=== PATIENT | female | born 1960 | race African-American/Black ===

== ENCOUNTER 2018-10-19 10:08 | Day surgery (SDC) | payer OTHER ==
[~2018-10-19 10:08] MED LIST: NACL 0.9% 1000 ML 1,000 ML IV SCH
--- NOTE | 2018-10-19 11:31 | Anesthesia Consultation ---
Anesthesia Consult and Med Hx Date of service: 10/19/18 - Airway Anesthetic Teeth Evaluation: Good ROM Head & Neck: Adequate Mallampati Class: Class III Intubation Access Assessment: Possibly Difficult - Pre-Operative Health Status ASA Pre-Surgery Classification: ASA2 Proposed Anesthetic Plan: MAC - Pulmonary Hx Sleep Apnea: Yes (undiagnosed) - Gastrointestinal Hx Gastroesophageal Reflux Disease: Yes (bloating)
--- NOTE | 2018-10-19 11:31 | Anesthesia Day of Surgery ---
Anesthesia Day of Surgery - Day of Surgery Patient Examined: Yes Patient H&P Reviewed: Yes Patient is NPO: Yes
[2018-10-19] MEDS ORDERED: DIPRIVAN 10 MG/ML IV ONE ×2 (11:34)
--- NOTE | 2018-10-19 12:09 | Short Stay Summary ---
Short Stay Documentation Date of service: 10/19/18 Narrative H&P: Pt presents for EGD 2/2 dyspepsia and screening colonoscopy. Abdominal discomfort/primarily epigastric and reflux. Weight stable. Denies gi bleeding. no prior screening colonoscopy. rest per clinic note/no changes. - History H&P: obtained from office Past Medical History: other (hepatitis B) Past Surgical History: Other Social history: no significant social history - Allergies and Medications Current Medications: Allergies No Known Allergies Allergy (Verified 10/17/18 15:04) Home Medications Medication Instructions Recorded Confirmed Last Taken Type No Known Home Medications [No 10/19/18 10/19/18 Unknown History Reported Home Medications] Active Medications Sodium Chloride (Nacl 0.9% 1000 Ml) 1,000 mls @ 50 mls/hr IV DIRECT HANNAH Last Admin: 10/19/18 11:43 Dose: 50 mls/hr Documented by: - Physical exam General appearance: no acute distress Lungs: Clear to auscultation Heart: Regular rate, Normal S1, Normal S2 Gastrointestinal: normal Extremities: No edema - Brief post op/procedure progress note Date of procedure: 10/19/18 Pre-op diagnosis: Dyspepsia, screening colonoscopy Post-op diagnosis: same Procedure: EGD with biopsies Colonoscopy with snare polypectomy Anesthesia: MAC Findings: EGD: erythematous mucosa in gastric body. biopsied erosive duodenitis. Biopsied Colonoscopy: fair prep; ~4 mm sessile polyp removed with cold snare Surgeon: SHERRIE ESTRADA Estimated blood loss: minimal Pathology: list (Jar A - duodenal biopsies; Jar B - gastric biopsies; Jar C - colon polyp) - Disposition Condition at discharge: Good Disposition: DC-01 TO HOME OR SELFCARE Short Stay Discharge Plan Follow up with: IVÁN MCCLAIN MD [Primary Care Provider] - 7 Days
--- NOTE | 2018-10-19 12:12 | Operative Report ---
Operative Report Operative Report: Esophagogastroduodenoscopy Procedure Note with Biopsies Date of procedure: 10/19/2018 Endoscopist: Eugene Alvarado Pre-op diagnosis/indication: Dyspepsia, abdominal pain, GERD Post-op diagnosis: Gastritis, Erosive duodenitis MEDICATIONS: MAC COMPLICATIONS: No immediate complications ESTIMATED BLOOD LOSS: Minimal DESCRIPTION OF PROCEDURE: After consent was obtained, the patient was placed in the left lateral decubitis position. The olympus endoscope was inserted into the patient's mouth under direct vision and advanced to the 2nd portion of the duodenum without difficulty. The patient tolerated the procedure well. The views of the mucosa were good. The patient's vital signs were monitored continuously throughout the procedure. FINDINGS: The esophagus appeared normal. There was mild to moderate erythematous mucosa in the antrum of the stomach. Biopsied were obtained. Otherwise, the stomach appeared normal. There were multiple superficial erosions throughout the duodenal sweep and 2nd portion of the duodenum. Biopsies were obtained. Otherwise, the duodenum appeared normal. IMPRESSION: 1. Gastritis. Biopsied. 2. Erosive duodenitis. Biopsied. RECOMMENDATIONS: -follow-up pathology -cont anti-acid medication daily -avoid nsaid medications -return to GI clinic in 3-4 weeks
--- NOTE | 2018-10-19 12:14 | Operative Report ---
Operative Report Operative Report: Colonoscopy Procedure Note with Snare polypectomy Date of procedure: 10/19/2018 Endoscopist: Eugene Alvarado Pre-op diagnosis/indication: Screening for colorectal cancer Post-op diagnosis: Colon polyp MEDICATIONS: MAC COMPLICATIONS: No immediate complications ESTIMATED BLOOD LOSS: Minimal DESCRIPTION OF PROCEDURE: After consent was obtained, the patient was placed in the left lateral decubitis position. The olympus colonoscope was inserted into the rectum under direct vision, and advanced to the cecum without difficulty. The quality of prep was fair. The views of the mucosa were fair. The patient tolerated the procedure well. The patient's vital signs were monitored continuously throughout the procedure. FINDINGS: There was an ~4 mm sessile polyp in the descending colon. The polyp was removed with cold snare and retrieved. Internal hemorrhoids were visualized on retro-flexion view. IMPRESSION: 1. Fair prep 2. Colon polyp removed with snare polypectomy as above RECOMMENDATIONS: -follow-up pathology -repeat colonoscopy in 3 years for surveillance (due to polyp and fair prep) -follow-up in GI clinic per EGD report recommendations
[2018-10-19 12:34] VITALS: BP 112/61
[2018-10-19] MEDS ORDERED: NACL 0.9% 1000 ML 1,000 ML ONE (13:20)
== END 2018-10-19 12:46 | disposition home or self-care (01) ==
LOC: GIO 10:08
PROVIDERS: ATTEND Internal Medicine Gastroenterology
DX: Z12.11 Encounter for screening for malignant neoplasm of colon (principal); D12.4 Benign neoplasm of descending colon; K29.50 Unspecified chronic gastritis without bleeding; K21.9 Gastro-esophageal reflux disease without esophagitis; K29.80 Duodenitis without bleeding; G47.30 Sleep apnea, unspecified; Z79.899 Other long term (current) drug therapy
CPT/HCPCS: 43239; 45385; 88305; 88342; J2704; J7030

== ENCOUNTER 2018-12-27 09:27 | Outpatient (CLI) | payer OTHER ==
--- NOTE | 2018-12-27 11:47 | Ultrasound Report ---
ABDOMINAL ULTRASOUND LIMITED (RIGHT UPPER QUADRANT) HISTORY: Abdominal pain history of hepatitis B. COMPARISON: None. No relevant comparative imaging. TECHNIQUE: Multiple real-time ultrasonographic grayscale images were obtained of the right upper abdo men. FINDINGS: The examination is somewhat limited due to large body habitus. Pancreas: Partially obscured by poor acoustic windows. Visualized portions without significant abnor mality. Liver: Small with the right lobe measuring 10.8 cm. Increased echogenicity of the liver and abnormal nodular echo pattern. No dominant liver mass. A 2.2 cm benign right hepatic cyst. Gallbladder: No stones, wall thickening or pericholecystic fluid. The gallbladder wall measures 3.2 m m. Common bile duct: 5.1 mm. Right kidney: No significant abnormality. No hydronephrosis. Kidney measures Kidney measures 9.2 cm. Additional findings: None. IMPRESSION: 1. Findings in the liver are suggestive of hepatic cirrhosis. 2. No cholelithiasis or signs of acute cholecystitis. 3. No ascites. Signer Name: Sp Mckeon MD Signed: 12/27/2018 11:43 AM Workstation Name: [id number]
== END 2018-12-27 09:28 | disposition home or self-care (01) ==
LOC: US 09:27 → EDSEX 09:27 → US 09:28
PROVIDERS: ATTEND Internal Medicine Gastroenterology
DX: B19.10 Unspecified viral hepatitis B without hepatic coma (principal); K21.9 Gastro-esophageal reflux disease without esophagitis
CPT/HCPCS: 76705

== ENCOUNTER 2019-11-16 08:22 | Emergency (ER) | payer OTHER ==
[2019-11-16 08:54] VITALS: BP 143/88
[2019-11-16] MEDS ORDERED: HYDROmorphone 1 MG/1 ML INJ IM ONE (11:36)
--- NOTE | 2019-11-16 11:36 | Emergency Department Report ---
Blank Doc - Documentation Documentation: Patient was brought to the room and as I enter the room patient was not there. I did not see or examine the patient. Patient eloped without me examining the patient.
== END 2019-11-16 11:45 | disposition left against medical advice (07) ==
LOC: ED 08:22
DX: Z53.21 Procedure and treatment not carried out due to patient leaving prior to being seen by health care provider (principal)
CPT/HCPCS: J1170